=== PATIENT | female | born 2000 | race Caucasian/White ===

== ENCOUNTER 2019-05-01 15:17 | Emergency (ER) | payer OTHER ==
[2019-05-01 15:31] VITALS: BP 122/68
--- NOTE | 2019-05-01 15:44 | ED Physician Documentation ---
PD HPI FEMALE - Stated complaint Stated Complaint: FEMALE - Chief complaint Chief Complaint: General - History obtained from History obtained from: Patient - History of Present Illness Timing - onset: How many days ago (2) Timing - duration: Days (2) Timing - details: Gradual onset, Still present Associated symptoms: Vaginal pain Contributing factors: No: Similar symptoms before: Diagnosis (yeast infection) Recently seen: Other - Additional information Additional information: 18-year-old female is recently been seen by a dentist had her wisdom teeth removed and she is on some antibiotic for this. She is now developed some vaginal dryness burning and itching with some excoriation of the skin to include some bleeding. She is very uncomfortable. She denies any urinary symptoms specifically. Review of Systems Constitutional: denies: Fever Ears: denies: Ear pain Nose: denies: Congestion Respiratory: denies: Cough GI: denies: Vomiting : reports: Other (dry excoriated skin itchy). denies: Dysuria, Frequency PD PAST MEDICAL HISTORY - Present Medications Home Medications: Ambulatory Orders Medication Instructions Recorded Confirmed Fluconazole [Diflucan] 150 mg PO ONCE #1 tablet 05/01/19 - Allergies Allergies/Adverse Reactions: Allergies Allergy/AdvReac Type Severity Reaction Status Date / Time No Known Drug Allergies Allergy Verified 05/01/19 15:28 PD ED PE NORMAL - Vitals Vital signs reviewed: Yes (normal ) - General General: Alert and oriented X 3, No acute distress, Well developed/nourished - HEENT HEENT: Atraumatic, PERRL, EOMI - Respiratory Respiratory: No respiratory distress - Derm Derm: Normal color, Warm and dry, No rash - Extremities Extremities: No deformity, No edema - Neuro Neuro: Alert and oriented X 3, painter helper spray 2-12 intact, No motor deficit, No sensory deficit, Normal speech Eye Opening: Spontaneous Motor: Obeys Commands Verbal: Oriented GCS Score: 15 - Psych Psych: Normal mood, Normal affect Results - Vitals Vitals: Vital Signs - 24 hr 05/01/19 15:28 Temperature 37.2 C Heart Rate 70 Respiratory 15 Rate Blood Pressure 122/68 O2 Saturation 100 Oxygen O2 Source Room air - Labs Labs: Laboratory Tests 05/01/19 15:45 Urine Color YELLOW Urine Clarity CLEAR Urine pH 6.0 Ur Specific [place] 1.015 Urine Protein NEGATIVE Urine Glucose (UA) NEGATIVE Urine Ketones NEGATIVE Urine Occult Blood NEGATIVE Urine Nitrite NEGATIVE Urine Bilirubin NEGATIVE Urine Urobilinogen 0.2 (NORMAL) Ur Leukocyte Esterase NEGATIVE Ur Microscopic Review NOT INDICATED Urine Culture Comments NOT INDICATED Urine HCG, Qual NEGATIVE PD MEDICAL DECISION MAKING - ED course Complexity details: considered differential, d/w patient ED course: 18 y/o female on antibiotic has developed vaginal dryness/burning and we will treat for lorrie. Departure - Departure Disposition: 01 Home, Self Care Clinical Impression: Yeast vaginitis Instructions: ED Vaginal Infec Fungal [place] Follow-Up: MARIA ELENA Gibson [Provider Group] Prescriptions: Fluconazole [Diflucan] 150 mg PO ONCE #1 tablet
[2019-05-01 16:12] LABS: BILIRUBIN,URINE NEGATIVE (NEGATIVE); GLUCOSE, URINE (UA) NEGATIVE (NEGATIVE); KETONES,URINE (UA) NEGATIVE (NEGATIVE); LEUKOCYTE ESTERASE, URINE NEGATIVE (NEGATIVE); NITRITE,URINE NEGATIVE (NEGATIVE); OCCULT BLOOD,URINE NEGATIVE (NEGATIVE); PROTEIN,URINE NEGATIVE (NEGATIVE); UROBILINOGEN,URINE 0.2 (NORMAL) E.U./dL (NORMAL)
[2019-05-01 16:13] LABS: CLARITY,URINE CLEAR (CLEAR); HCG UR QUAL NEGATIVE
== END 2019-05-01 16:22 | disposition home or self-care (01) ==
LOC: ED 15:17
DX: B37.3 Candidiasis of vulva and vagina (principal)
CPT/HCPCS: 81001; 81003; 81025; 87086; 99283